=== PATIENT | female | born 1965 | race Caucasian/White ===

== ENCOUNTER 2016-12-25 15:44 | Emergency (ER) | payer MEDICAID ==
[~2016-12-25] VITALS: Ht 160 cm; Wt 68.0 kg
[2016-12-25 15:45] VITALS: Ht 160 cm; Wt 68.0 kg
--- NOTE | 2016-12-25 21:06 | ERA ---
ER Documentation Chief Complaint Date/Time DATE: 12/25/16 TIME: 21:05 Chief Complaint LEFT FLANK PAIN WITH N/V STARTED TODAY HPI The patient is a 51-year-old female, presenting to the ER because of left pelvic pain intermittently since 3 PM today, associated with nausea and vomiting mostly mucus. She denies similar symptoms previously, denies fever, chills, neck pain, chest pain, dyspnea, abdominal pain, nausea, vomiting, dysuria, diarrhea. She does not have any abdominal pain as documented in triage note. She does not smoke nor drink, LMP was more than a year ago Past medical/surgical history: None ROS All systems reviewed and are negative except as per history of present illness. Physical Exam Vitals Vital Signs Date Time Temp Pulse Resp B/P Pulse Ox O2 Delivery O2 Flow Rate FiO2 12/25/16 23:00 71 18 113/73 97 Room Air 12/25/16 15:45 99.5 114 22 150/68 97 Physical Exam Const: No acute distress. Head: Atraumatic. Eyes: Normal Conjunctiva. ENT: Normal External Ears, Nose and Mouth. Neck: Full range of motion. No meningismus. Resp: Clear to auscultation bilaterally. Cardio: Regular rate and rhythm, no murmurs. Abd: Soft, non distended, normal bowel sounds, minimal left pelvic discomfort, no right lower quadrant, right upper quadrant, epigastric, CVA tenderness. Skin: No petechiae or rashes. Back: No midline or flank tenderness. Ext: No cyanosis, or edema. Neur: Awake and alert. No focal deficit Psych: Normal Mood and Affect. Result Diagram: 12/25/16214412/25/162144 Results 24 hrs Laboratory Tests Test 12/25/16 21:15 12/25/16 21:45 Bedside Urine pH (LAB) 8.5 Bedside Urine Protein (LAB) Trace Bedside Urine Glucose (UA) Negative Bedside Urine Ketones (LAB) Trace Bedside Urine Blood 2+ Bedside Urine Nitrite (LAB) Negative Bedside Urine Leukocyte Esterase (L Negative White Blood Count 12.510^3/ul Red Blood Count 4.9110^6/ul Hemoglobin 14.3g/dl Hematocrit 42.9% Mean Corpuscular Volume 87.4fl Mean Corpuscular Hemoglobin 29.1pg Mean Corpuscular Hemoglobin Concent 33.3g/dl Red Cell Distribution Width 13.1% Platelet Count 72700^3/UL Mean Platelet Volume 9.6fl Neutrophils % 67.2% Lymphocytes % 27.5% Monocytes % 4.7% Eosinophils % 0.2% Basophils % 0.2% Nucleated Red Blood Cells % 0.0/100WBC Neutrophils # 8.410^3/ul Lymphocytes # 3.410^3/ul Monocytes # 0.610^3/ul Eosinophils # 0.010^3/ul Basophils # 0.010^3/ul Nucleated Red Blood Cells # 0.010^3/ul Sodium Level 143mmol/L Potassium Level 3.7mmol/L Chloride Level 101mmol/L Carbon Dioxide Level 27mmol/L Anion Gap 19 Blood Urea Nitrogen 14mg/dl Creatinine 0.66mg/dl Glucose Level 194mg/dl Calcium Level 9.8mg/dl Total Bilirubin 0.2mg/dl Direct Bilirubin 0.00mg/dl Indirect Bilirubin 0.2mg/dl Aspartate Amino Transf (AST/SGOT) 24IU/L Alanine Aminotransferase (ALT/SGPT) 28IU/L Alkaline Phosphatase 163IU/L Total Protein 8.3g/dl Albumin 4.3g/dl Globulin 4.00g/dl Albumin/Globulin Ratio 1.07 Lipase 74U/L Current Medications Medications (Trade) Dose Ordered Sig/Noemi Route PRN Reason Start Time Stop Time Status Last Admin Dose Admin Ketorolac Tromethamine (Toradol) 30 mg ONCE STAT IV 12/25/16 21:14 12/25/16 21:17 DC 12/25/16 21:45 Procedures/[place] [address] Radiology Main Line: [phone] DIAGNOSTIC IMAGING REPORT Patient: JAVIER ALANIS : 1965 Age: 51 Sex: F MR #: [id number] DOS: 12/25/162113 Ordering MD: CATALINA MONTES MD Location: E/R Room/Bed: PROCEDURE: US Non-OB Pelvis. CLINICAL INDICATION: Left pelvic pain. TECHNIQUE: Multiple sonographic images of the pelvis were obtained utilizing a transabdominal and endovaginal technique. The images were reviewed on a PACS workstation. COMPARISON: None. FINDINGS: The uterus is retroverted and measures 7.6 x 3.9 x 4.0 cm. The endometrial echo complex is normal and measures 5 mm. There is 1.2 cm uterine fibroid. The right ovary measures 2.0 x 1.1 x 1.8 cm. The left ovary measures 2.3 x 1.2 x 1.8 cm. Blood flow is demonstrated to both ovaries. No adnexal masses are noted. There is no evidence of free fluid. IMPRESSION: 1. 1.2 cm uterine fibroid. 2. Normal appearance of the ovaries. RPTAT: HTAR .Denilson Alvarado MD, MD Date Time Electronically viewed and signed by .Denilson Alvarado MD, MD on 12/25/2016 22:08 .R/ CC: CATALINA MONTES MD MEDICAL MAKING DECISION: The patient is a 51-year-old female, presenting with acute uterine fibroid. She was treated with Toradol 30 IV for pain with good response. The differential diagnoses considered include but are not limited to PID, ovarian cyst, endometriosis, fibroids, appendicitis. Departure Diagnosis: Primary Impression: Uterine fibroid Condition: Good Comments She was discharged with Motrin I discussed the findings with the patient. 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 The patient's blood pressure was elevated (>120/80) but appears stable without evidence of hypertension emergency or urgency. The patient was counseled about the risks of hypertension and urged to pursue outpatient monitoring and therapy within a week with their primary care physician. CATALINA MONTES MD Dec 25, 2016 21:06
[2016-12-25] MEDS ORDERED: KETOROLAC 30 MG INJ IV STA (21:14)
[2016-12-25 21:16] LABS: URINE BLOOD (Dip) POC 2+ (NEGATIVE)
[2016-12-25 22:08] LABS: ADD SCAN DIFF NO
--- NOTE | 2016-12-25 22:08 | RADRPT ---
PROCEDURE: US Non-OB Pelvis. CLINICAL INDICATION: Left pelvic pain. TECHNIQUE: Multiple sonographic images of the pelvis were obtained utilizing a transabdominal and endovaginal technique. The images were reviewed on a PACS workstation. COMPARISON: None. FINDINGS: The uterus is retroverted and measures 7.6 x 3.9 x 4.0 cm. The endometrial echo complex is normal an d measures 5 mm. There is 1.2 cm uterine fibroid. The right ovary measures 2.0 x 1.1 x 1.8 cm. The left ovary measures 2.3 x 1.2 x 1.8 cm. Blood flow is demonstrated to both ovaries. No adnexal masses are noted. There is no evidence of free fluid. IMPRESSION: 1. 1.2 cm uterine fibroid. 2. Normal appearance of the ovaries. RPTAT: HTAR .Denilson Alvarado MD, Date Time Electronically viewed and signed by .Denilson Alvarado MD, on 12/25/2016 22:08 .R/
[2016-12-25 22:13] LABS: BASOPHILS % 0.2 % (0.0-2.0); EOSINOPHILS % 0.2 % (0.0-7.0); HEMATOCRIT 42.9 % (37.0-47.0); HEMOGLOBIN 14.3 g/dl (12.0-16.0); LYMPHOCYTES # 3.4 10^3/ul (0.8-2.9); LYMPHOCYTES % 27.5 % (15.0-51.0); MEAN CORPUSCULAR HEMOGLOBIN 29.1 pg (29.0-33.0); MEAN CORPUSCULAR HGB CONC 33.3 g/dl (32.0-37.0); MEAN CORPUSCULAR VOLUME 87.4 fl (82.0-101.0); MEAN PLATELET VOLUME 9.6 fl (7.4-10.4); MONOCYTE # 0.6 10^3/ul (0.3-0.9); MONOCYTES % 4.7 % (0.0-11.0); NEUTROPHIL # 8.4 10^3/ul (1.6-7.5); NEUTROPHILS % 67.2 % (39.0-77.0); PLATELET COUNT 368 10^3/UL (140-415); RED BLOOD COUNT 4.91 10^6/ul (4.20-5.40); RED CELL DISTRIBUTION WIDTH 13.1 % (11.5-14.5); WHITE BLOOD COUNT 12.5 10^3/ul (4.8-10.8)
[2016-12-25 22:23] LABS: ALBUMIN 4.3 g/dl (3.3-4.9)
[2016-12-25 22:24] LABS: POTASSIUM 3.7 mmol/L (3.5-5.1)
[2016-12-25 22:25] LABS: CREATININE 0.66 mg/dl (0.44-1.00)
[2016-12-25 22:26] LABS: ALBUMIN/GLOBULIN RATIO 1.07; BILIRUBIN,INDIRECT 0.2 mg/dl (0-1.1); BILIRUBIN,TOTAL 0.2 mg/dl (0.2-1.3); CALCIUM 9.8 mg/dl (8.4-10.2); TOTAL PROTEIN 8.3 g/dl (6.1-8.1)
[2016-12-25] MEDS ORDERED: IBUP-1542 PO (23:27)
[2016-12-26 00:04] VITALS: BP 115/65; PULSE 71; RESP 17
== END 2016-12-26 00:05 | disposition home or self-care (01) ==
LOC: E/R 15:44
DX: D25.9 Leiomyoma of uterus, unspecified (principal)
CPT/HCPCS: 36415; 76830; 76856; 80053; 81003; 83690; 85025; 96374; J1885; Z7502

== ENCOUNTER 2017-08-21 11:51 | Emergency (ER) | payer OTHER ==
[~2017-08-21] VITALS: Wt 60.6 kg
[~2017-08-21 11:51] MED LIST: GUAI-637 PO; IBUP-1542 PO; LEVO500T10 PO
[2017-08-21] MEDS ORDERED: KETOROLAC 60 MG INJ IM STA (13:44)
[2017-08-21] MEDS ORDERED: predniSONE 20 MG TAB PO ONE (14:00)
--- NOTE | 2017-08-21 14:40 | RADRPT ---
PROCEDURE: XR Lumbar Spine. CLINICAL INDICATION: Low back pain. TECHNIQUE: Three views of the lumbar spine are available for review COMPARISON: Abdomen pelvis CT 05/10/2017. FINDINGS: There is maintenance of normal lumbar lordosis. There is 3 mm anterolisthesis at L5-S1. No acute fracture or dislocation is seen. The vertebral body heights and disc spaces are preserved. No significant paraspinal soft tissue swelling is noted. IMPRESSION: 1. Grade 1 anterolisthesis at L5-S1. 2. No acute lumbar spine compression fracture or dislocation. RPTAT: HH .Beck Parsons MD, Date Time Electronically viewed and signed by .Beck Parsons MD, on 08/21/2017 14:40 .N/
[2017-08-21] MEDS ORDERED: PRED20TA PO (16:09)
[2017-08-21] MEDS ORDERED: HYDR-906 PO (16:09)
[2017-08-21] MEDS ORDERED: IBUP-1542 PO (16:09)
--- NOTE | 2017-08-21 16:21 | ERD ---
ER Documentation Chief Complaint Chief Complaint RIGHT LOW BACK PAIN RADIATES TO RIGHT LEG HPI This is a 51-year-old female presents to the ER with right-sided buttocks pain that radiates down to her leg. Patient states that it is worse whenever she is walking. She denies any weakness. She denies any trauma to the area. She denies any urinary bowel incontinence. She denies any saddle like anesthesia. She denies any fevers or chills. She denies any IV drug use. ROS 12 point review of systems was done, all negative except per HPI. Medications Home Meds Active Scripts Prednisone* (Prednisone*) 20 Mg Tab, 60 MG PO DAILY for 4 Days, TAB Prov:JOHN MOMIN 08/21/17 Ibuprofen* (Motrin*) 600 Mg Tab, 600 MG PO Q6, #30 TAB Prov:JOHN MOMIN 08/21/17 Hydrocodone/Acetaminophen ([place]m 5-325 Tablet) 1 Each Tablet, 1 TAB PO Q6H Y for PAIN, #7 TAB Prov:JOHN MOMIN 08/21/17 Guaifenesin* (Robitussin*) 100 Mg/5 Ml Syrup, 100 MG PO Q4H Y for COUGH, #240 ML Prov:AARON PFEIFFER MD 05/14/17 Levofloxacin* (Levofloxacin*) 500 Mg Tablet, 500 MG PO DAILY, #7 TAB Prov:AARON PFEIFFER MD 05/14/17 Ibuprofen* (Motrin*) 600 Mg Tab, 600 MG PO Q6H Y for PAIN AND OR ELEVATED TEMP, #30 TAB Prov:CATALINA MONTES MD 12/25/16 Allergies Allergies: Coded Allergies: No Known Allergy (Unverified , 05/10/17) PMhx/Soc History of Surgery: No Anesthesia Reaction: No Hx Neurological Disorder: No Hx Respiratory Disorders: Yes Hx Cardiac Disorders: No Hx Psychiatric Problems: No Hx Miscellaneous Medical Probl: No Hx Alcohol Use: No Hx Substance Use: No Hx Tobacco Use: No Smoking Status: Never smoker Physical Exam Vitals Physical Exam GENERAL: The patient is well developed and appropriate for usual state of health , in no apparent distress. NECK: C-spine is soft and supple. There is no cervical lymphadenopathy. CHEST: Clear to auscultation bilaterally. There are no rales, wheezes or rhonchi. HEART: Regular rate and rhythm. No murmurs, clicks, rubs or gallops. ABDOMEN: Soft, nontender and nondistended. Good bowel sounds. No rebound or guarding. No gross peritonitis. No gross organomegaly or masses. No Mederos sign or McBurney point tenderness. No pulsatile abdominal mass. BACK: No midline or flank tenderness. Tender to palpation from L3-L5. Tense paraspinal muscles. Negative leg raise test. No step- offs. EXTREMITIES: Equal pulses bilaterally. There is no peripheral clubbing, cyanosis or edema. No focal swelling or erythema. Full range of motion. Grossly neurovascularly intact. NEURO: Alert and oriented. Cranial nerves II through XII are intact. Motor strength in all 4 extremities with 5/5 strength. Sensation grossly intact. Normal speech and gait. SKIN: There is no apparent rash or petechia. The skin is warm and dry. Results 24 hrs Current Medications Medications (Trade) Dose Ordered Sig/Noemi Route PRN Reason Start Time Stop Time Status Last Admin Dose Admin Ketorolac Tromethamine (Toradol) 60 mg ONCE STAT IM 08/21/17 13:44 08/21/17 13:46 DC 08/21/17 16:02 Prednisone (Prednisone) 60 mg ONCE ONCE PO 08/21/17 14:00 08/21/17 14:01 DC 08/21/17 16:[address] [place] [address] Radiology Main Line: [phone] DIAGNOSTIC IMAGING REPORT Patient: JAVIER BRIONES : 1965 Age: 51 Sex: F [id number] [id number] DOS: 08/21/17 0000 Ordering MD: JOHN MOMIN PA-C Location: FTE Room/Bed: PROCEDURE: XR Lumbar Spine. CLINICAL INDICATION: Low back pain. TECHNIQUE: Three views of the lumbar spine are available for review COMPARISON: Abdomen pelvis CT 05/10/2017. FINDINGS: There is maintenance of normal lumbar lordosis. There is 3 mm anterolisthesis at L5-S1. No acute fracture or dislocation is seen. The vertebral body heights and disc spaces are preserved. No significant paraspinal soft tissue swelling is noted. IMPRESSION: 1. Grade 1 anterolisthesis at L5-S1. 2. No acute lumbar spine compression fracture or dislocation. RPTAT: HH .Beck Parsons MD, Date Time Electronically viewed and signed by .Beck Parsons MD, on 08/21/2017 14: 40 .N/ CC: JOHN MOMIN Procedures/MDM Differential Diagnosis includes but is not limited to back strain, vertebral fracture, epidural abscess, cauda equina, herniated disc, AAA rupture, kidney stones, UTI, pyelonephritis. Symptoms are consistent with sciatica. Suspicion for epidural abscess, discitis, cauda equina is low. Patient is afebrile and well-appearing, she does have full range of motion of her back and she is neurovascularly intact. Patient will be sent home with prednisone and ibuprofen. She will also be given a short course of [place]m. She is to follow- up with her primary care doctor within 1-2 days return to ER sooner if symptoms worsen. My medical decision making sure with the patient she understands and agrees with plan. Departure Diagnosis: Primary Impression: Sciatica Condition: Stable Patient Instructions: Back Pain W/ Sciatica Additional Instructions: Llame al doctor MAANA y jessica kiya DAVID PARA DENTRO DE 1-2 BARBOZA.Dgale a la secretaria que nosotros le instruimos hacer esta david.Avise o llame si guzman condicin se empeora antes de la david. Regresa aqui si peor o no mejor. JOHN MOMIN Aug 21, 2017 16:21
== END 2017-08-21 16:24 | disposition home or self-care (01) ==
LOC: FTE 11:51
DX: M54.41 Lumbago with sciatica, right side (principal)
CPT/HCPCS: 72100; 96372; J1885; J7512; Z7502

== ENCOUNTER 2017-10-04 23:13 | Emergency (ER) | END 2017-10-05 09:20 | disposition home or self-care (01) ==